=== PATIENT | female | born 1985 ===

== ENCOUNTER 2020-09-22 09:22 | Emergency (ER) | payer OTHER ==
[~2020-09-22] VITALS: Ht 170.2 cm; Wt 75.0 kg
[2020-09-22 10:04] VITALS: BP 132/84
--- NOTE | 2020-09-22 10:09 | NUR ---
PROVIDER EVALUATED PATIENT IN ROOM 18 AND PT WAS ADVISED BY PROVIDER THAT ROOM WOULD BE AVAILABLE 5-10 MINUTES. PATIENT GOT UP AND LEFT, PROVIDER UNABLE TO STOP PATIENT FROM LEAVING.
--- NOTE | 2020-09-22 11:54 | NUR ---
Late entry: Malom notified of pt's elopment
== END 2020-09-22 10:12 | disposition left against medical advice (07) ==
LOC: ER 09:23
DX: R10.2 Pelvic and perineal pain (principal); F15.10 Other stimulant abuse, uncomplicated; Z60.9 Problem related to social environment, unspecified; Z53.21 Procedure and treatment not carried out due to patient leaving prior to being seen by health care provider
CPT/HCPCS: 99281